=== PATIENT | female | born 1985 | race Two or more races ===

== ENCOUNTER → 2022-12-12 10:34 | Outpatient (BNVA) | payer OTHER, SELFPAY | PROVIDERS: Visit Provider Physician Assistant Surgical ==

== ENCOUNTER 2022-12-14 08:14 | Outpatient (AMB) | payer OTHER, SELFPAY ==
[2022-12-14 11:32] VITALS: BMI 42.3
--- NOTE | 2022-12-14 11:32 | MHC.OFFVISWM ---
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 BMI 42.4 Allergies No Known Allergies Allergy (Verified 12/14/22 12:04) Medication List - Last Reconciled 12/14/22 by Damon Tierney MD No Known Home Meds HPI TV BROOM MAN SWL BMI 42.4 HPI Details Start time: 11.30am, End time: 12.15pm ?I spent 40 minutes speaking with the patient on the phone plus an additional 5 minutes reviewing and updating records for a total of 45 minutes HPI Comments History of Present Illness Details Previous weight loss efforts: self diets, Cabbage soup, Phentermine Wakes up: 7am, Sleeps: 11pm Breakfast: 9am (cereal, bagel, toast) Lunch: 12pm (left over) Dinner: 7-8pm (rice, beans and chicken) Snacks: occasionally Gold fish or apple at 10am, 3-4pm (candy) Exercise: Has a home treadmill Fluids: Coffee: none, tea: none, soda: none, juice: 2 glasses per day, ETOH: none PFSH Medical History (Updated 12/14/22 @ 11:32 by Damon Tierney MD) Morbid obesity Surgical History (Updated 12/12/22 @ 11:02 by DESTINY Dasilva) delivery delivered Family History (Updated 12/12/22 @ 11:04 by DESTINY Dasilva) Mother No problems noted. Father Lung cancer Substance abuse Daughter No problems noted. Daughter No problems noted. Social History (Updated 12/12/22 @ 11:08 by DESTINY Dasilva) Household Members: Spouse and Children Housing: House Alcohol intake: never Patient Tobacco Use Status: Never used Tobacco Current occupational status: employed Current occupation: TEACHER Physical Exam Vital Signs: BMI result Body Mass Index 42.3 Assessment & Plan Assessment & Plan (1) Morbid obesity: Code(s): E66.01 - Morbid (severe) obesity due to excess calories Plan: 1.? Plan for lap sleeve gastrectomy. If diaphragmatic or ventral hernias are present at time of surgery, these will be repaired laparoscopically as well. Risks and complications were discussed in detail including possible conversion to an open procedure, anastomotic leak, bleeding requiring transfusion, small bowel obstruction, , DVT and pulmonary embolism, cardiac, or pulmonary complications, as care home complications such as anastomotic ulcer, insufficient weight loss and vitamin deficiencies. I emphasized the importance of close follow-up, adherence to instructions and good communication. 2. Nutritional counseling. Start with one Isopure INFUSIONS protein (buy at [employer] or [employer]) shakes (HALF scoop in 8oz water) at 7am-9am, 3 protein bars (CELEBRATE protein bars, buy at [facility] [employer] [facility]) one at 10am-12pm, one at 1pm-3pm and one at 4pm-6pm, dinner at 7pm (8 forks of protein and 8 forks of salad/vegetables) and one CELEBRATE REBUILD protein (buy at [facility] [employer] [facility]) shake (ONE scoop in 8oz low fat unsweetened almond milk each) at 9pm-11pm. The Celebrate shake can be replaced by a Herbalife shake preparing it the same way. So you do 2 protein shakes, 3 protein bars and one meal per day. Meal to include lean meat (beef, fish, pork, turkey, chicken), or welsh yogurt, or egg whites, or beans with a salad with olive oil and fruits (berries, pears, apples, kiwi). Avoid salt, breads, potatoes, rice, pasta, desserts. 3. Each shake would be drunk slowly, like coffee in a period of 2 hours. 4. Cut each bar in 4 pieces and eat each piece in 30min ?to make each bar last 2 hours. 5. I emphasized the importance of measuring accurately the food portion and measure it when serving the food in plate 6. The meal portions include 8 full-size forks of meat and 8 full-size forks of salad. You always eat the meat portion but you can replace up to 4 forks for salad/vegetables with rice, potatoes or pasta, or a fruit ?if you like. The less you do it the better weight loss will be. 7. One full-size fork is what it can be scooped on the fork without falling aside and not what can be bit with the fork. Use regular forks like those you find in a typical restaurant. 8.? Please send me weight measurements as soon as possible and then once a week. Always include your diet and exercise plan. 9. Start treadmill with an incline of 2.0 and speed of 3.0. Increase incline by 1 every 3 min to a max incline of 8.0, stay 3min at 8.0 and then return to 2.0 and repeat same steps until calorie goal is met. Goal is to burn 2000 calories per week on exercise, which means either 300 calories daily, or 400 calories 5 days per week, or 500 calories 4 days per week, or 650 calories 3 days per week. 10.?It is important of avoiding and for at least 18 months postoperatively and has been discussed at the infosession. 11. Goal is to lose at least 1.5-2lbs per week 12. Goal to lose 10% of your weight before surgery, which is about 23lbs. Ultimate weight goal: 208lbs before surgery 13. Please follow the diet plan exactly without any change. If you don't like something about the plan or you feel hungry you need to communicate with me so I can help you revise the plan. You should not change the plan yourself. Orders: Orders IRON PROFILE Today E66.01 - Morbid (severe) obesity due to excess calories Zinc Today E66.01 - Morbid (severe) obesity due to excess calories C Reactive Protein Today E66.01 - Morbid (severe) obesity due to excess calories US abdomen comp w elastography Today E66.01 - Morbid (severe) obesity due to excess calories FL upper GI w air Today E66.01 - Morbid (severe) obesity due to excess calories Insulin Today E66.01 - Morbid (severe) obesity due to excess calories Lipid Panel Today E66.01 - Morbid (severe) obesity due to excess calories Complete Blood Count Auto Diff Today E66.01 - Morbid (severe) obesity due to excess calories Vitamin B12 and Folate Today E66.01 - Morbid (severe) obesity due to excess calories Comprehensive Met. Panel Today E66.01 - Morbid (severe) obesity due to excess calories Vitamin B1 Today E66.01 - Morbid (severe) obesity due to excess calories Vitamin A Today E66.01 - Morbid (severe) obesity due to excess calories Ferritin Today E66.01 - Morbid (severe) obesity due to excess calories PTHI Today E66.01 - Morbid (severe) obesity due to excess calories TSH reflex Free T4 Today E66.01 - Morbid (severe) obesity due to excess calories H Pylori Breath Test Today E66.01 - Morbid (severe) obesity due to excess calories Vitamin D 25-OH Total Today E66.01 - Morbid (severe) obesity due to excess calories Hemoglobin A1c Today E66.01 - Morbid (severe) obesity due to excess calories XR chest 2V Today E66.01 - Morbid (severe) obesity due to excess calories ECG 12 lead EKG Today E66.01 - Morbid (severe) obesity due to excess calories Referrals Behavioral Health Referral E66.01 - Morbid (severe) obesity due to excess calories Nutrition/Dietitian Referral E66.01 - Morbid (severe) obesity due to excess calories Telehealth Telehealth Location of provider rendering services: practice address Location of patient: address on file Patient Identification confirmed using: Name, : Yes Telehealth method: voice only Patient verbally consented to treatment: Yes Patient verbally consented to billing insurance company: Yes Patient informed of any privacy concerns related to visit: Yes Minutes spent on Phone/Video with Pt.: 45 Coding Level of Care Code Tele New Pt Level 4 (28776) Diagnoses Morbid obesity E66.01 Time Spent (min) 45
== END 2022-12-14 12:43 | disposition home or self-care (01) ==
LOC: HO.HBS 08:15
PROVIDERS: Visit Provider Surgery
DX: E66.01 Morbid (severe) obesity due to excess calories (principal); Z68.41 Body mass index [BMI] 40.0-44.9, adult
CPT/HCPCS: 99443

== ENCOUNTER → 2022-12-14 08:14 | Outpatient (BNVA) | payer OTHER, SELFPAY | PROVIDERS: Visit Provider Surgery ==

== ENCOUNTER 2022-12-28 07:41 | Outpatient (REF) | payer OTHER, SELFPAY ==
--- NOTE | ~2022-12-28 | US_ITS ---
EXAMINATION: US COMPLETE ABDOMEN WITH LIVER ELASTOGRAPHY CLINICAL INFORMATION: COMPARISON: None available. TECHNIQUE: Real-time imaging of the abdominal viscera. Noninvasive ultrasound liver fibrosis assessment is performed using Lalo ElastPQ point quantification shear wave elastography (2D-SWE) with a C5-2 MHz transducer. Multiple elastography samples are obtained. FINDINGS: PANCREAS: Normal. The visualized pancreatic head and body are normal in appearance. The remainder of the pancreas is obscured from visualization by the overlying bowel gas. ABDOMINAL AORTA: The proximal, middle, and distal aortic segments are normal in caliber. INFERIOR VENA CAVA: Visualized portions are normal. LIVER: Normal. The liver demonstrates normal size, contour and echogenicity. Within the left hepatic lobe posteriorly, a 2.7 x 2.7 x 4.8 cm hypoechoic density is seen, without associated color Doppler flow. No intrahepatic biliary duct dilatation. The right lobe measures 19.0 cm in length. The left lobe measures 13.4 cm in length. Portal flow is towards the liver (hepatopetal). Shear wave liver elastography median stiffness is 1.37 m/s (reference: normal median stiffness is 1.3 m/s or less). IQR/median stiffness to assess sampling precision is 0.08 (reference: good quality data set is IQR/median stiffness of 0.15 or less). GALLBLADDER: Normal. The gallbladder is physiologically distended without evidence of stones, sludge, polyps, wall thickening or pericholecystic fluid. COMMON BILE DUCT: Normal in caliber measuring 0.5 cm in diameter. RIGHT KIDNEY: At the interpolar aspect, a 4 mm nonobstructing calculus is seen. At the lower pole, a 6 cm nonobstructing calculus is seen. No hydronephrosis. No renal calculi or focal parenchymal lesions. The kidney measures 12.5 cm in maximum dimension. LEFT KIDNEY: 32). (. No hydronephrosis. No renal calculi or focal parenchymal lesions. The kidney measures 16.4 cm in maximum dimension. SPLEEN: Normal. The spleen measures 11.9 cm in maximum dimension. FREE FLUID: None. US/US abdomen comp w elastography IMPRESSION: 1. There is generalized increase in hepatic echotexture, consistent with fatty infiltration or hepatocellular disease. Please correlate clinically. No intrahepatic biliary dilatation is seen. 2. Within the left hepatic lobe posteriorly, a 4.8 cm hypoechoic density is seen. This may represent a complex cyst, a solid lesion or focal fatty sparing. Recommend further evaluation with CT or MRI (hepatic mass protocol). 3. There is hepatomegaly. 4. Liver elastography: In the absence of other known clinical signs, measurements rule out compensated advanced chronic liver disease. If there are known clinical signs, further testing may be needed for confirmation. 5. There are nonobstructing right renal calculi. REFERENCE: Society of Radiologists in Ultrasound Liver Stiffness Thresholds (2020): LIVER STIFFNESS THRESHOLDS: *Liver Stiffness equal or less than 5 kPa: High probability of being normal. *Liver Stiffness less than 9 kPa: In the absence of other known clinical signs, rules out compensated advanced chronic liver disease. *Liver Stiffness 9-13 kPa: Suggestive of compensated advanced chronic liver disease but need further test for confirmation. *Liver Stiffness over 13 kPa: Rules in compensated advanced chronic liver disease. *Liver Stiffness over 17 kPa: Suggestive of clinically significant portal hypertension. QUALITY OF DATA SET: *IQR/Median value equal or less than 0.30 implies a quality data set. *IQR/Median value over 0.30 implies a poor quality data set. SIGNIFICANT CHANGE FROM PRIOR EXAM: Significant change if liver stiffness measurement is 10% or greater from prior exam. OTHER CONSIDERATIONS: The stage of liver fibrosis may be overestimated in the setting of acute hepatitis, liver inflammation, elevated liver function tests, hepatic vascular congestion, obstructive cholestasis, non-fasting state, and infiltrative diseases such as amyloidosis and lymphoma. In some patients with NAFLD, the liver stiffness thresholds for compensated advanced chronic liver disease may be lower. In causes other than viral hepatitis and NAFLD, liver stiffness thresholds are not well established. 2. Liver elastography: REFERENCE: Society of Radiologists in Ultrasound Liver Stiffness Thresholds (2020): LIVER STIFFNESS THRESHOLDS: *Liver Stiffness equal or less than 1.3 m/s: High probability of being normal. *Liver Stiffness less than 1.7 m/s: In the absence of other known clinical signs, rules out compensated advanced chronic liver disease. *Liver Stiffness 1.7-2.1 m/s: Suggestive of compensated advanced chronic liver disease but need further test for confirmation. *Liver Stiffness over 2.1 m/s: Rules in compensated advanced chronic liver disease. *Liver Stiffness over 2.4 m/s: Suggestive of clinically significant portal hypertension. QUALITY OF DATA SET: *IQR/Median value equal or less than 0.15 implies a quality data set. *IQR/Median value over 0.15 implies a poor quality data set. SIGNIFICANT CHANGE FROM PRIOR EXAM: Significant change if liver stiffness measurement is 10% or greater from prior exam. OTHER CONSIDERATIONS: The stage of liver fibrosis may be overestimated in the setting of acute hepatitis, liver inflammation, elevated liver function tests, hepatic vascular congestion, obstructive cholestasis, non-fasting state, and infiltrative diseases such as amyloidosis and lymphoma. In some patients with NAFLD, the liver stiffness thresholds for compensated advanced chronic liver disease may be lower. In causes other than viral hepatitis and NAFLD, liver stiffness thresholds are not well established.
--- NOTE | ~2022-12-28 | XR_ITS ---
EXAMINATION: XR CHEST CLINICAL INFORMATION: Morbid obesity. COMPARISON: None. TECHNIQUE: Frontal and lateral views of the chest were obtained. FINDINGS: The heart, great vessels, pulmonary vasculature and mediastinum are normal. The lungs show no focal infiltrate, effusion or pneumothorax. There is no acute osseous abnormality. XR/XR chest 2V IMPRESSION: No active cardiopulmonary disease.
--- NOTE | 2022-12-28 07:45 | ECG_ITS ---
Test Reason : morbid obesity Blood Pressure : / mmHG Vent. Rate : 077 BPM Atrial Rate : 077 BPM P-R Int : 180 ms QRS Dur : 078 ms QT Int : 374 ms P-R-T Axes : 020 013 023 degrees QTc Int : 423 ms Normal sinus rhythm Normal ECG No previous ECGs available Referred By: Damon Tierney Electronically Signed By:FÁTIMA MONSON MD
[2022-12-28 07:56] LABS: MANUAL DIFF FLAG NO
[2022-12-28 08:15] LABS: Basophils Percent Auto 0.3 % (0-2); Eosinophils Absolute Auto 0.3 X10*3/uL (0.0-0.4); Eosinophils Percent Auto 2.2 % (0-4); Hematocrit 40.6 % (37.0-47.0); Hemoglobin 13.1 g/dl (12.0-16.0); Imm Gran Abs Auto 0.07 X10*3/uL (0.00-0.03); Imm Gran Pct Auto 0.6 % (0.0-0.4); Lymphocytes Absolute Auto 3.2 X10*3/uL (1.2-4.9); Lymphocytes Percent Auto 28.3 % (20-40); Mean Corpuscular HGB Conc 32.3 g/dl (31.0-35.0); Mean Corpuscular Hemoglobin 28.8 pg (27.0-33.0); Mean Corpuscular Volume 89.2 fL (80.0-98.0); Mean Platelet Volume 10.1 fL (9.4-12.3); Monocytes Absolute Auto 0.9 X10*3/uL (0.1-1.2); Monocytes Percent Auto 8.2 % (2-11); Neutrophils Absolute Auto 6.7 x10*3/uL (2.0-8.3); Neutrophils Percent Auto 60.4 % (45-73); Platelet Count 310 X10*3/uL (160-400); Red Blood Count 4.55 X10*6/uL (4.20-5.50); Red Cell Distribution Width 13.6 % (11.0-16.0); White Blood Count 11.1 X10*3/uL (4.8-10.8)
[2022-12-28 08:23] LABS: Estimated Average Glucose 100 mg/dL; Hemoglobin A1c % 5.1 % (<6.0)
[2022-12-28 08:45] LABS: Alanine Aminotransferase 32 U/L (0-31); Alkaline Phosphatase 84 U/L (39-117); Anion Gap 12 (12-20); Aspartate Amino Transferase 29 U/L (5-31); Bilirubin Total 0.4 mg/dL (0.0-1.0); Blood Urea Nitrogen 10 mg/dL (9-16); C Reactive Protein 1.15 mg/dL (< or = 0.50); Calcium 10.7 mg/dL (8.4-10.2); Carbon Dioxide 23 mmol/L (22-29); Chloride 108 mmol/L (96-108); Cholesterol 183 mg/dL (<200); Estimated Glomerular Filt Rate > 60; Glucose Random 103 mg/dL (60-115); HDL Cholesterol 40 mg/dL (>40); Iron 73 mcg/dL (30-160); LDL Cholesterol Calculated 117 mg/dL (<100); Percent Iron Saturation 25 % (15-50); Potassium 4.1 mmol/L (3.3-5.1); Sodium 139 mmol/L (135-145); Total Iron Binding Capacity 294 mcg/dL (228-428); Total Protein 7.7 g/dL (6.5-8.0); Triglycerides 131 mg/dL (<150); Unsaturated Iron Binding 221 ug/dL
[2022-12-28 09:06] LABS: Ferritin 83 ng/mL (10-122); Insulin 20 uU/mL (2-29); TSH reflex Free T4 1.12 uIU/mL (0.32-4.0); Vitamin D 25-OH Total 18.8 ng/mL (>30)
[2022-12-28 09:12] LABS: Folate 8.4 ng/mL (> or = 4.0); Vitamin B12 293 pg/mL (200-900)
[2022-12-29 18:32] LABS: Calcium (PTHI) 10.1 mg/dL (8.6-10.2); PTHI 95 pg/mL (16-77)
[2022-12-31 10:10] LABS: H Pylori Breath Test Positive (Negative)
[2022-12-31 16:12] LABS: Zinc 83 mcg/dL (60-130)
[2023-01-03 12:54] LABS: Vitamin A 45 mcg/dL (38-98)
[2023-01-03 14:18] LABS: Vitamin B1 10 nmol/L (8-30)
== END 2022-12-28 07:42 | disposition home or self-care (01) ==
LOC: HO.US 07:41
PROVIDERS: PCP Physician Assistant; Visit Provider Surgery
DX: Z11.2 Encounter for screening for other bacterial diseases (principal); E66.01 Morbid (severe) obesity due to excess calories
CPT/HCPCS: 36415; 71046; 76705; 76981; 80053; 80061; 82306; 82607; 82728; 82746; 83013; 83036; 83525; 83540; 83970; 84425; 84443; 84590; 84630; 85025; 86140; 93005; 99211

== ENCOUNTER 2023-01-12 08:10 | Outpatient (AMB) | payer OTHER, SELFPAY ==
--- NOTE | 2023-01-12 12:42 | MHC.OFFVISWM ---
Intake VS Expanded 01/12/23 13:12 Height 5 ft 2 in Weight 229 lb 4 oz BMI 41.9 Body Fat % 55.2 Body Fat Mass 126.6 Fat Free Mass 102.8 Visceral Fat Rating 23 Body Water % 30.7 Body Water Mass 70.4 Basal Metabolic Rate/Score 1,381 Intake Visit Reasons: TV Follow Up SWL - 1ST Allergies No Known Allergies Allergy (Verified 12/14/22 12:04) HPI TV Follow Up SWL - 1ST HPI Details Start time: 12.41pm, End time: 1.23pm ?I spent 37 minutes speaking with the patient on the phone plus an additional 5 minutes reviewing and updating records for a total of 42 minutes HPI Comments History of Present Illness Details Overall weight loss: 2.4lbs, or 1.04% TBWL Is doing one Isopure Infusion (1/2 scoop in water) at 7.30am-9.30am, a Celebrate protein bar 9-11pm. lunch (8 forks of chicken and 8 forks of salad) at 12pm, one Celebrate protein bar at 2pm-4pm, dinner (8 forks of chicken and 4 forks or rice and 4 forks of salad), one Celebrate Rebuild shakes with one scoop in almond milk) Exercise: is doing home treadmill [facility] Medical History (Updated 01/08/23 @ 18:44 by Damon Tierney MD) Morbid obesity Surgical History (Updated 12/12/22 @ 11:02 by DESTINY Dasilva) delivery delivered Family History (Updated 12/12/22 @ 11:04 by DESTINY Dasilva) Mother No problems noted. Father Lung cancer Substance abuse Daughter No problems noted. Daughter No problems noted. Social History (Updated 12/12/22 @ 11:08 by DESTINY Dasilva) Household Members: Spouse and Children Housing: House Alcohol intake: never Patient Tobacco Use Status: Never used Tobacco Current occupational status: employed Current occupation: TEACHER Assessment & Plan Assessment & Plan (1) Morbid obesity: Code(s): E66.01 - Morbid (severe) obesity due to excess calories Plan: 1. Please change the nutritional plan to one Celebrate Rebuild shake (HALF scoop in 8oz almond milk) at 8am-10am, a Celebrate protein bar at 11am-1pm, one Celebrate Rebuild shake (HALF scoop in 8oz almond milk) at 2pm-4pm, HALF Celebrate bar at 5pm-6pm, dinner at 7pm (8 forks of protein and 8 forks of salad or vegetables) and one Celebrate protein bar ar 9pm-11pm 2. Take the Phentermine daily at 11am 3. Change treadmill to a speed of 4mph at incline 4 until you burn 300 calories or for an hour if you don't get to 300 calories in an hour 4. We discussed the potential side-effects of the Phentermine such as irritability, dry mouth, difficulty sleeping, dizziness, numbness in feet and high blood pressure. I asked her to get a blood pressure monitor and measure the blood pressure daily in the morning and evening. She needs to send the blood pressure readings daily and to call the office for blood pressure over 140/80 and she understands that. 5. Please send weight measurements weekly on Mondays Medications: New phentermine must administer 30 minutes before or 1-2 hours after breakfast 37.5 mg PO DAILY 14 tabs 0RF E66.01 - Morbid (severe) obesity due to excess calories Telehealth Telehealth Location of provider rendering services: practice address Location of patient: address on file Patient Identification confirmed using: Name, : Yes Telehealth method: voice only Patient verbally consented to treatment: Yes Patient verbally consented to billing insurance company: Yes Patient informed of any privacy concerns related to visit: Yes Minutes spent on Phone/Video with Pt.: 42 Coding Level of Care Code Tele Est Pt Level 5 (16712) Diagnoses Morbid obesity E66.01 Time Spent (min) 42
[2023-01-12 13:12] VITALS: BMI 41.9
== END 2023-01-12 13:24 | disposition home or self-care (01) ==
LOC: HO.HBS 08:10
PROVIDERS: PCP Physician Assistant; Visit Provider Surgery
DX: E66.01 Morbid (severe) obesity due to excess calories (principal); Z68.41 Body mass index [BMI] 40.0-44.9, adult
CPT/HCPCS: 99443

== ENCOUNTER → 2023-01-12 08:10 | Outpatient (BNVA) | payer OTHER, SELFPAY | PROVIDERS: PCP Physician Assistant; Visit Provider Surgery ==

== ENCOUNTER → 2023-01-18 15:49 | Outpatient (BNVA) | payer OTHER, SELFPAY | PROVIDERS: PCP Physician Assistant; Visit Provider Dietitian, Registered | DX: E66.01 Morbid (severe) obesity due to excess calories (principal); Z71.3 Dietary counseling and surveillance | CPT/HCPCS: 97802 ==

== ENCOUNTER 2023-01-25 16:17 | Outpatient (AMB) | payer OTHER, SELFPAY ==
--- NOTE | 2023-01-25 15:59 | A.OFFWM_ITS ---
Intake Intake Visit Reasons: VIDEO BH Intake Allergies No Known Allergies Allergy (Verified 12/14/22 12:04) ON LICENSE OF [facility] Medical History (Updated 01/25/23 @ 16:35 by Garima Greenwood) Morbid obesity Surgical History (Updated 12/12/22 @ 11:02 by DESTINY Dasilva) delivery delivered Family History (Updated 12/12/22 @ 11:04 by DESTINY Dasilva) Mother No problems noted. Father Lung cancer Substance abuse Daughter No problems noted. Daughter No problems noted. Social History (Updated 12/12/22 @ 11:08 by DESTINY Dasilva) Household Members: Spouse and Children Housing: House Alcohol intake: never Patient Tobacco Use Status: Never used Tobacco Current occupational status: employed Current occupation: TEACHER Behavioral Health Assessment Weight Management Therapy Therapy Notes Details Pt is looking to have weight loss surgery to help improve his health and quality of life. She denied any mental health history and denied a history of any drug or alcohol abuse. She reported some anxiety and was given medication by her doctor but she did not take it. Presenting Concerns Referral Source provider Reason for referral weight loss surgery evaluation Precipitating Event obesity Living Situation Current Living Situation Own At risk of losing current housing? No Satisfied with current living situation? Yes Comments Lives with her children ages 11, and 13 as well as her fiance. Food/Weight/Diet Expectations of change weight loss and maintenance History/Relationship with food Pt stated that she was ordering out often at work and evenings. Also fast food and whatever she could on the go for her and her children. Also larger portions as well as snacking. Eating late at night until her fianc? gets home. She denies any binge eating. History/Relationship with weight Pt stated that she has been struggling with her weight her whole life. She gained most of the weight after she had kids. She realized that she thought she was huge at 150lbs but was not. History/Relationship with dieting Phentermine in the past, various other diets, ear staple and medication went down to 167lbs. Social History Family history and relationship Pt stated that she was raised by her mother, Some trauma of not having her father around. Her mom sister and other family members all have struggled with her weight. Parental/Familial snow blower obligations children Developmental history and status no issues Social support mom, sister Cultural/Ethnic information Legal Involvement and History Current or historical involvement with the legal system? none Education Highest grade completed college for teaching Preferred learning style Auditory, Verbal, Written, Learn by doing and Visual Currently enrolled in educational program? No Interested in further educational program? Yes Educational Interests/Skills Patient works as a teacher Employment Employment Status Charge Loader Wants help to find employment? No Financial Situation Describe current financial situation Comfortable Financial assistance? None Service Service? No Mental Health and Addiction Treatment Current/Past substance abuse? No Current/Past addictive behavior concerns? No Medical and Physical Health Summary Physical exam in the last year? Yes Pain Screening Current pain? Yes Pain in the last few months? No Medications Is the patient compliant with medications? Yes Does the patient have Patten Guardian in place? Not applicable Does the patient use complimentary health approaches? No Questionnaires PHQ-9 Over the last 2 weeks, how often have you been bothered by any of the following problems? 1. Little interest or pleasure in doing things: not at all 2. Feeling down, depressed, or hopeless: not at all 3. Trouble falling or staying asleep, or sleeping too much: not at all 4. Feeling tired or having little energy: not at all 5. Poor appetite or overeating: not at all 6. Feeling bad about yourself - or that you are a failure or have let yourself or your family down: not at all 7. Trouble concentrating on things, such as reading the newspaper or watching television: not at all 8. Moving or speaking so slowly that other people could have noticed. Or the opposite - being so fidgety or restless that you have been moving around a lot more than usual: not at all 9. Thoughts that you would be better off or of hurting yourself in some way: not at all Total score: 0 Depression Screening Interpretation: Negative Depression Screening Done: Yes Source: Developed by Drs. Jackson Ortiz, Roya Mcgarry, Raheem Collier and colleagues, with an educational sissy from [employer]. Binge Eating Scale Group 1 A. I don't feel self-conscious about my wt. or body size when I'm with others. B. I feel concerned about how I look to others, but it normally does not make me fell disappointed with myself C. I do get self-conscious about my appearance and wt. which makes me feel disappointed in myself. D. I feel very self-conscious about my wt. and frequently I feel intense shame and disgust for myself. I try to avoid social contacts because of my self- consciousness. Response Group 1: C Group 2 A. I don't have any difficulty eating slowly in the proper manner. B. Although I seem to gobble down foods, I don't end up feeling stuffed because of eating to much. C. At times, I tend to eat quickly and then, I feel uncomfortably full afterwards. D. I have the habit of bolting down my food, without really chewing it. When this happens I usually feel uncomfortably stuffed because I've eaten to much. Response Group 2: C Group 3 A. I feel capable to control my eating urges when I want to. B. I feel like I have failed to control my eating more than the average person. C. I feel utterly helpless when it comes to feeling in control of my eating urges. D. Because I feel so helpless about controlling my eating I have become very desperate about trying to get control. Response Group 3: B Group 4 A. I don't have the habit of eating when I'm bored. B. I sometimes eat when I'm bored, but often I'm able to get busy and get my mind off food. C. I have a regular habit of eating when I'm bored, but occasionally, I can use some other activity to get my mind off eating. D. I have a strong habit of eating when I'm bored. Nothing seems to help me breath the habit. Response Group 4: C Group 5 A. I'm usually physically hungry when I eat something. B. Occasionally, I eat something on impulse even though I really am not hungry. C. I have the regular habit of eating foods, that I might not really enjoy, to satisfy a hungry feeling even though physically, I don't need the food. D. Although I'm not physically hungry, I get a hungry feeling in my mouth that only seems to be satisfied when I eat a food, like sandwich, that fills my mouth. Sometimes, when I eat the food to satisfy my mouth hunger, I then spit the food out so I won't gain weight. Response Group 5: B Group 6 A. I don't feel any guilt or self-hate after I overeat. B. After I overeat, occasionally I feel guilt or self-hate. C. Almost all the time I experience strong guilt or self-hate after I overeat. Response Group 6: B Group 7 A. I don't lose total control of my eating when dieting even after periods when I overeat. B. Sometimes when I eat a forbidden food on a diet, I feel like I blew it and eat even more. C. Frequently, I have the habit of saying to myself, I've blown it now, why not go all the way, when I overeat on a diet. When that happens I eat more. D. I have a regular habit of starting a strict diets for myself but I break the diets by going on an eating binge. My life seems to be either a feast or famine. Response Group 7: B Group 8 A. I rarely eat so much food that I feel uncomfortably stuffed afterwards. B. Usually about once a month, I each such a quantity of food, I end up feeling very stuffed. C. I have regular periods during the month when I eat large amounts of food, either at mealtime or at snacks. D. I eat so much food that I regularly feel quite uncomfortable after eating and sometimes a bit nauseous. Response Group 8: A Group 9 A. My level of calorie intake does not go up very high or go down very low on a regular basis. B. Sometimes after I overeat, I will try to reduce my caloric intake to almost nothing to compensate for the excess calories I've eaten. C. I have a regular habit of overeating during the night. It seems that my routine is not to be hungry in the morning but overeat in the evening. D. In my adult years, I have had week-long periods where I practically starve myself. This follows periods when I overeat. It seems I live a life of either feast or famine. Response Group 9: B Group 10 A. I usually am able to stop eating when I want to. I know when enough is enough. B. Every so often, I experience a compulsion to eat which I can't seem to control. C. Frequently, I experience strong urges to eat which I seem unable to control, but at other times I can control my eating urges. D. I feel incapable of controlling urges to eat. I have a fear of not being able to stop eating voluntarily. Response Group 10: A Group 11 A. I don't have any problem stopping eating when I feel full. B. I usually can stop eating when I feel full but occasionally overeat leaving me feeling uncomfortably stuffed. C. I have a problem stopping eating once I start and usually I feel uncomfortably stuffed after I eat a meal. D. Because I have a problem not being able to stop eating when I want, I sometimes have to induce vomiting to relieve my stuffed feeling. Response Group 11: A Group 12 A. I seem to eat just as much when I'm with others, Family social gatherings as when I'm by myself. B. Sometimes, when I'm with other persons, I don't eat as much as I want to eat because I'm self-conscious about my eating. C. Frequently, I eat only a small amount of food when others are present, because I'm very embarrassed about my eating. D. I feel so ashamed about overeating that I pick times to overeat when I know no one will see me. I feel like a closet eater. Response Group 12: B Group 13 A. I eat three meals a day with only an occasional between meal snack. B. I eat 3 meals a day, but I also normally snack between meals. C. When I am snacking heavily, I get in the habit of skipping regular meals. D. There are regular periods when I seem to be continually eating, with no planned meals. Response Group 13: B Group 14 A. I don't think much about trying to control unwanted eating urges. B. At least some of the time, I feel my thoughts are pre-occupied with trying to control my eating urges. C. I feel that frequently I spend much time thinking about how much I ate or about trying not to eat anymore. D. It seems to me that most of my waking hours are pre-occupied by thoughts about eating or not eating. I feel like I'm constantly struggling not to eat. Response Group 14: B Group 15 A. I don't think about food a great deal. B. I have strong craving for food but they last only for brief periods of time. C. I have days when I can't seem to think about anything else but food. D. Most of my days seem to be pre-occupied with thoughts about food. I feel like I live to eat. Response Group 15: C Group 16 A. I usually know whether or not I'm physically hungry. I take the right portion of food to satisfy me. B. Occasionally, I feel uncertain about knowing whether or not I'm physically hungry. A these times it's hard to know how much food I should take to satisfy me. C. Even though I might know how many calories I should eat, I don't have any idea what is a normal amount of food for me. Response Group 16: C Binge Eating Score: 18 Score less than 17 Minimal Risk Score between 18-26 Moderate Risk Score between 27-46 High Risk Assessment & Plan Assessment & Plan (1) Adjustment disorder, unspecified: Code(s): F43.20 - Adjustment disorder, unspecified (2) Morbid obesity: Code(s): E66.01 - Morbid (severe) obesity due to excess calories Plan Patient has no serious mental health problems. 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 Telehealth Telehealth Location of provider rendering services: other Location of patient: address on file Patient Identification confirmed using: Name, : Yes Telehealth method: voice only Patient verbally consented to treatment: Yes Patient verbally consented to billing insurance company: Yes Patient informed of any privacy concerns related to visit: Yes Minutes spent on Phone/Video with Pt.: 45 Coding Level of Care Code Tele Psy Diag Eval (40758) Diagnoses Adjustment disorder, unspecified F43.20 Morbid obesity E66.01 Time Spent (min) 45
== END 2023-01-25 16:37 | disposition home or self-care (01) ==
LOC: HO.HBST 16:17
PROVIDERS: PCP Physician Assistant; Visit Provider Counselor Mental Health
DX: F43.20 Adjustment disorder, unspecified (principal); E66.01 Morbid (severe) obesity due to excess calories
CPT/HCPCS: 90791

== ENCOUNTER → 2023-01-25 16:17 | Outpatient (BNVA) | payer OTHER, SELFPAY | PROVIDERS: PCP Physician Assistant; Visit Provider Counselor Mental Health ==

== ENCOUNTER 2023-01-29 08:52 | Outpatient (AMB) | payer OTHER, SELFPAY ==
[2023-01-28 20:39] VITALS: BP 146/85; BMI 41.7
--- NOTE | 2023-01-28 20:39 | MHC.OFFVISWM ---
Intake VS Expanded 01/28/23 20:39 BP 146/85 H Height 5 ft 2 in Weight 228 lb BMI 41.7 Body Fat % 55 Body Fat Mass 125.8 Fat Free Mass 103 Visceral Fat Rating 24 Body Water % 30.9 Body Water Mass 70.6 Basal Metabolic Rate/Score 2,606 Intake Visit Reasons: TV Follow Up SWL Allergies No Known Allergies Allergy (Verified 12/14/22 12:04) HPI TV Follow Up SWL HPI Details Start time: 11.54am, End time: 12.09pm. An additional 15 minutes were used at a different part of the day to complete this note and review patient's records. ?I spent 15 minutes speaking with the patient on the phone plus an additional 15 minutes reviewing and updating records for a total of 30 minutes HPI Comments History of Present Illness Details Overall weight loss: 3.8lbs, or 1.64% TBWL On Phentermine 1st prescription Has some dry mouth Denies any dizziness, foot numbness, irritability, insomnia Is doing one Celebrate Rebuild shake (HALF scoop in 8oz almond milk) at 8am-10am, a Celebrate protein bar at 11am-1pm, one Celebrate Rebuild shake (HALF scoop in 8oz almond milk) at 2pm-4pm, HALF Celebrate bar at 5pm-6pm, dinner at 7pm (8 forks of protein and 8 forks of salad or vegetables) and one Celebrate protein bar ar 9pm-11pm Exercise: is doing treadmill to a speed of 4mph at incline 4 until you burn 300 calories daily [facility] Medical History (Updated 01/25/23 @ 16:35 by Garima Greenwood) Morbid obesity Surgical History (Updated 12/12/22 @ 11:02 by DESTINY Dasilva) delivery delivered Family History (Updated 12/12/22 @ 11:04 by DESTINY Dasilva) Mother No problems noted. Father Lung cancer Substance abuse Daughter No problems noted. Daughter No problems noted. Social History (Updated 12/12/22 @ 11:08 by DESTINY Dasilva) Household Members: Spouse and Children Housing: House Alcohol intake: never Patient Tobacco Use Status: Never used Tobacco Current occupational status: employed Current occupation: TEACHER Physical Exam Vital Signs: Last Vital Signs BP 146/85 H 01/28/23 20:39 BMI result Body Mass Index 41.8 Assessment & Plan Assessment & Plan (1) Morbid obesity: Code(s): E66.01 - Morbid (severe) obesity due to excess calories Plan: 1. Continue same nutritional plan of one Celebrate Rebuild shake (HALF scoop in 8oz almond milk) at 8am-10am, a Celebrate protein bar at 11am-1pm, one Celebrate Rebuild shake (HALF scoop in 8oz almond milk) at 2pm-4pm, HALF Celebrate bar at 5pm-6pm, dinner at 7pm (8 forks of protein and 8 forks of salad or vegetables) and one Celebrate protein bar ar 9pm-11pm 2. Take the Phentermine daily at 11am 3. If you don't feel hungry, please skip the dinner as often as possible and replace it with another extra protein bar (3rd bar for the day) 4. Continue treadmill to a speed of 4mph at incline 4 until you burn 300 calories daily. Goal is to burn 2000 calories per week. 5. Continue to send me weight measurements weekly on Mondays Medications: Refilled phentermine must administer 30 minutes before or 1-2 hours after breakfast 37.5 mg PO DAILY 14 tabs 0RF E66.01 - Morbid (severe) obesity due to excess calories Telehealth Telehealth Location of provider rendering services: practice address Location of patient: address on file Patient Identification confirmed using: Name, : Yes Telehealth method: voice only Patient verbally consented to treatment: Yes Patient verbally consented to billing insurance company: Yes Patient informed of any privacy concerns related to visit: Yes Minutes spent on Phone/Video with Pt.: 30 Coding Level of Care Code Tele Est Pt Level 4 (57612) Diagnoses Morbid obesity E66.01 Time Spent (min) 30
== END 2023-01-29 12:09 | disposition home or self-care (01) ==
PROVIDERS: PCP Physician Assistant; Visit Provider Surgery
DX: E66.01 Morbid (severe) obesity due to excess calories (principal); Z68.41 Body mass index [BMI] 40.0-44.9, adult
CPT/HCPCS: 99443

== ENCOUNTER → 2023-01-29 08:52 | Outpatient (BNVA) | payer OTHER, SELFPAY | PROVIDERS: PCP Physician Assistant; Visit Provider Surgery ==

== ENCOUNTER 2023-02-07 09:04 | Outpatient (REF) | payer OTHER, SELFPAY ==
[2023-02-10 15:08] LABS: H Pylori Breath Test Negative (Negative)
== END 2023-02-07 09:05 | disposition home or self-care (01) ==
LOC: HO.LNP 09:04
PROVIDERS: PCP Physician Assistant; Visit Provider Surgery
DX: Z11.2 Encounter for screening for other bacterial diseases (principal)
CPT/HCPCS: 83013; 99211

== ENCOUNTER 2023-02-12 08:16 | Outpatient (AMB) | payer OTHER, SELFPAY ==
--- NOTE | 2023-02-12 11:52 | A.OFFVIS_ITS ---
Intake VS Expanded 02/12/23 12:14 Height 5 ft 2 in Weight 225 lb BMI 41.1 Body Fat % 53.9 Body Fat Mass 121.2 Fat Free Mass 103.8 Visceral Fat Rating 22 Body Water % 31.6 Body Water Mass 71.1 Basal Metabolic Rate/Score 1,399 Intake Visit Reasons: TV Follow Up SWL Allergies No Known Allergies Allergy (Verified 12/14/22 12:04) HPI TV Follow Up SWL HPI Details Start time: 11.47am, End time: 12.28pm ?I spent 40 minutes speaking with the patient on the phone plus an additional 5 minutes reviewing and updating records for a total of 45 minutes HPI Comments History of Present Illness Details Overall weight loss: 6.8lbs, or 2.93% TBWL On Phentermine 2nd prescription, 11 pills left Has some dry mouth and insomnia but she states it is tolerable Denies any dizziness, foot numbness, irritability. Is doing 2 Celebrate Rebuild protein shakes (1 scoop in soy milk), 2.5 Celebrate protein bars and one meal (8 forks of protein and 8 forks of vegetables), or an additional bar Exercise: doing treadmill (speed at 4mph and an incline 4.0) [facility] Medical History (Updated 01/25/23 @ 16:35 by Garima Greenwood) Morbid obesity Surgical History (Updated 12/12/22 @ 11:02 by DESTINY Dasilva) delivery delivered Family History (Updated 12/12/22 @ 11:04 by DESTINY Dasilva) Mother No problems noted. Father Lung cancer Substance abuse Daughter No problems noted. Daughter No problems noted. Social History (Updated 12/12/22 @ 11:08 by DESTINY Dasilva) Household Members: Spouse and Children Housing: House Alcohol intake: never Patient Tobacco Use Status: Never used Tobacco Current occupational status: employed Current occupation: TEACHER Assessment & Plan Assessment & Plan (1) Morbid obesity: Code(s): E66.01 - Morbid (severe) obesity due to excess calories Plan: 1. Continue same nutritional plan of 2 Celebrate Rebuild protein shakes (1 scoop in soy milk), 2.5 Celebrate protein bars and one meal (8 forks of protein and 8 forks of vegetables) 2. Please avoid completely the soy or low fat milk. Only use low fat unsweetened almond milk 3. Please continue to try to replace the meal as many times as possible per week with another protein bar 4. Exercise: continue treadmill (speed at 4mph and an incline 4.0) but do it ideally daily for 300 calories per work-out. Goal is to burn 2000 calories per week on exercise, which means either 300 calories daily, or 400 calories 5 days per week, or 500 calories 4 days per week, or 650 calories 3 days per week. 5. Continue to send me weight measurements weekly on Mondays 6. Send me your blood pressure tomorrow morning. We discussed the potential side-effects of the Phentermine such as irritability, dry mouth, difficulty sleeping, dizziness, numbness in feet and high blood pressure. I asked her to get a blood pressure monitor and measure the blood pressure daily in the morning and evening. She needs to send the blood pressure readings daily and to call the office for blood pressure over 140/80 and she understands that. Telehealth Telehealth Location of provider rendering services: practice address Location of patient: address on file Patient Identification confirmed using: Name, : Yes Telehealth method: voice only Patient verbally consented to treatment: Yes Patient verbally consented to billing insurance company: Yes Patient informed of any privacy concerns related to visit: Yes Minutes spent on Phone/Video with Pt.: 45 Coding Level of Care Code Tele Est Pt Level 5 (13198) Diagnoses Morbid obesity E66.01 Time Spent (min) 45
[2023-02-12 12:14] VITALS: BMI 41.1
== END 2023-02-12 12:29 | disposition home or self-care (01) ==
LOC: HO.HBS 08:16
PROVIDERS: PCP Physician Assistant; Visit Provider Surgery
DX: E66.01 Morbid (severe) obesity due to excess calories (principal); Z68.41 Body mass index [BMI] 40.0-44.9, adult
CPT/HCPCS: 99443

== ENCOUNTER → 2023-02-12 08:16 | Outpatient (BNVA) | payer OTHER, SELFPAY | PROVIDERS: PCP Physician Assistant; Visit Provider Surgery ==

== ENCOUNTER 2023-02-28 16:26 | Outpatient (AMB) | payer OTHER, SELFPAY ==
--- NOTE | 2023-02-28 16:05 | A.OFFVIS_ITS ---
Intake Intake Visit Reasons: VIDEO F/U SWL Allergies No Known Allergies Allergy (Verified 12/14/22 12:04) HPI Nutrition Presentation Details Pt is now on Phentermine Reason for consult elevated BMI Diet Assmnt Details Pt states she is doing great with her plan now. Likes the new shakes . She states she has no questions or concerns Is happy with her meal plan now. [facility] online classes : completed Previous weight loss methods attempted took phentermine 7 years ago Dietary counseling reduction Diagnosis Nutrition problem #1 overweight/obesity As related to (etiology) #1 excess energy intake and physical inactivity As evidenced by (sign/symptom) #1 high BMI Monitoring/Goals Nutrition problem monitoring total energy intake, level of knowledge/skill, total PRO intake, total CHO intake and weight Outcome progress progressing Learning/Education Readiness to learn good Stages of change action Educational materials provided Yes Most Recent Diabetes Results: No Data to Display [facility] Medical History (Updated 01/25/23 @ 16:35 by Garima Greenwood) Morbid obesity Surgical History (Updated 12/12/22 @ 11:02 by DESTINY Dasilva) delivery delivered Family History (Updated 12/12/22 @ 11:04 by DESTINY Dasilva) Mother No problems noted. Father Lung cancer Substance abuse Daughter No problems noted. Daughter No problems noted. Social History (Updated 12/12/22 @ 11:08 by DESTINY Dasilva) Household Members: Spouse and Children Housing: House Alcohol intake: never Patient Tobacco Use Status: Never used Tobacco Current occupational status: employed Current occupation: TEACHER Assessment & Plan Assessment & Plan (1) Morbid obesity: Code(s): E66.01 - Morbid (severe) obesity due to excess calories Plan Patient is cleared from a nutrition standpoint for bariatric surgery. Educational requirements have been completed. Reviewed vitamin supplementation and commitment to protein shake for several months post surgery. Encouraged communication with office as needed Telehealth Telehealth Location of provider rendering services: practice address Location of patient: address on file Patient Identification confirmed using: Name, : Yes Telehealth method: voice only Patient verbally consented to treatment: Yes Patient verbally consented to billing insurance company: Yes Patient informed of any privacy concerns related to visit: Yes Minutes spent on Phone/Video with Pt.: 10 Coding Level of Care Code Nutr Indiv Subseq (06911) Diagnoses Morbid obesity E66.01 Time Spent (min) 10
== END 2023-03-01 10:49 | disposition home or self-care (01) ==
LOC: HO.HBS 16:26
PROVIDERS: PCP Physician Assistant; Visit Provider Dietitian, Registered
DX: E66.01 Morbid (severe) obesity due to excess calories (principal)

== ENCOUNTER → 2023-02-28 16:26 | Outpatient (BNVA) | payer OTHER, SELFPAY | PROVIDERS: PCP Physician Assistant; Visit Provider Dietitian, Registered | DX: E66.01 Morbid (severe) obesity due to excess calories (principal); Z71.3 Dietary counseling and surveillance | CPT/HCPCS: 97803 ==

== ENCOUNTER 2023-03-02 08:29 | Outpatient (AMB) | payer OTHER, SELFPAY ==
--- NOTE | 2023-03-02 13:37 | MHC.OFFVISWM ---
Intake VS Expanded 03/02/23 13:49 Height 5 ft 2 in Weight 221 lb 6 oz BMI 40.5 Body Fat % 52.9 Body Fat Mass 117.2 Fat Free Mass 104.4 Visceral Fat Rating 22 Body Water % 32.3 Body Water Mass 71.5 Basal Metabolic Rate/Score 1,385 Intake Visit Reasons: TV Follow Up SWL Allergies No Known Allergies Allergy (Verified 12/14/22 12:04) HPI TV Follow Up SWL HPI Details Start time: 1.35pm, End time: 1.55pm ?I spent 15 minutes speaking with the patient on the phone plus an additional 5 minutes reviewing and updating records for a total of 20 minutes HPI Comments History of Present Illness Details Overall weight loss: 10.2lbs, or 4.4% TBWL On Phentermine Is doing 2 Celebrate Rebuild protein shakes (1 scoop in 8oz almond milk), 2.5 Celebrate protein bars and one meal (up to 8 forks of protein and up to 8 forks of salad or vegetables) Exercise: doing treadmill daily 200-300 calories, fior x2/wk [facility] Medical History (Updated 01/25/23 @ 16:35 by Garima Greenwood) Morbid obesity Surgical History (Updated 12/12/22 @ 11:02 by DESTINY Dasilva) delivery delivered Family History (Updated 12/12/22 @ 11:04 by DESTINY Dasilva) Mother No problems noted. Father Lung cancer Substance abuse Daughter No problems noted. Daughter No problems noted. Social History (Updated 12/12/22 @ 11:08 by DESTINY Daislva) Household Members: Spouse and Children Housing: House Alcohol intake: never Patient Tobacco Use Status: Never used Tobacco Current occupational status: employed Current occupation: TEACHER Assessment & Plan Assessment & Plan (1) Morbid obesity: Code(s): E66.01 - Morbid (severe) obesity due to excess calories Plan: 1. Continue same nutritional plan of 2 Celebrate Rebuild protein shakes (1 scoop in 8oz almond milk), 2.5 Celebrate protein bars and one meal (up to 8 forks of protein and up to 8 forks of salad or vegetables) 2. Exercise: continue treadmill daily 200-300 calories, fior x2/wk 3. We discussed the potential side-effects of the Phentermine such as irritability, dry mouth, difficulty sleeping, dizziness, numbness in feet and high blood pressure. I asked her to get a blood pressure monitor the blood pressure daily in the morning and evening. She needs to send the blood pressure readings daily and to call the office for blood pressure over 140/80 and she understands that. 4. Continue to send me weight measurements on Wednesdays Telehealth Telehealth Location of provider rendering services: practice address Location of patient: address on file Patient Identification confirmed using: Name, : Yes Telehealth method: voice only Patient verbally consented to treatment: Yes Patient verbally consented to billing insurance company: Yes Patient informed of any privacy concerns related to visit: Yes Minutes spent on Phone/Video with Pt.: 20 Coding Level of Care Code Tele Est Pt Level 3 (39901) Diagnoses Morbid obesity E66.01 Time Spent (min) 20
[2023-03-02 13:49] VITALS: BMI 40.5
== END 2023-03-02 13:55 | disposition home or self-care (01) ==
LOC: HO.HBS 08:29
PROVIDERS: PCP Physician Assistant; Visit Provider Surgery
DX: E66.01 Morbid (severe) obesity due to excess calories (principal); Z68.41 Body mass index [BMI] 40.0-44.9, adult
CPT/HCPCS: 99442

== ENCOUNTER → 2023-03-02 08:29 | Outpatient (BNVA) | payer OTHER, SELFPAY | PROVIDERS: PCP Physician Assistant; Visit Provider Surgery ==

== ENCOUNTER 2023-03-06 08:16 | Outpatient (REF) | payer OTHER, SELFPAY ==
--- NOTE | ~2023-03-06 | FL_ITS ---
EXAMINATION: XR FLUOROSCOPY UPPER GI WITH AIR CLINICAL INFORMATION: Morbid obesity, preop for bariatric surgery. Patient complains of mild reflux. COMPARISON: No prior. TECHNIQUE: Fluoroscopic air contrast upper GI examination was performed utilizing standard techniques with thin and thick barium and effervescent granules. Numerous spot images were obtained. Several fluoroscopic image hold cine sequences were also obtained. FINDINGS: No tracheal penetration, glottic or subglottic aspiration identified. No nasopharyngeal reflux present. Hypopharyngeal structures appear normal without evidence of mass or diverticulum. There was no significant cricopharyngeal achalasia. Dual and single contrast images of the esophagus demonstrate normal caliber, contour, and mucosal pattern. No evidence of stricture, mass, or ulcerations identified. Esophageal peristalsis was normal. Small type I hiatus hernia identified. Mild gastroesophageal reflux identified to the level of the parviz. Dual contrast and single contrast images of the stomach demonstrated normal contour and mucosal pattern without evidence of mass, ulceration, or other abnormality. Contrast freely passed into the gastric antrum and duodenal bulb without delay. Single and air-contrast images of the duodenal bulb demonstrate no abnormality. The duodenal sweep has a normal appearance, course, and mucosal fold appearance. The imaged proximal jejunum has a normal fold pattern and caliber. FLUOROSCOPY TIME: 2 minutes, 33 seconds Number of Spot Images: 8 Number of cines obtained: 13 DOSE AREA PRODUCT: 3019 uGy-m2 (microgray-meter squared) FL/FL upper GI w air IMPRESSION: Small type I sliding hiatus hernia. Mild gastroesophageal reflux the level of the parviz. Remainder the examination including the stomach, duodenal bulb, duodenal sweep, and proximal jejunum appear normal.
== END 2023-03-06 08:17 | disposition home or self-care (01) ==
LOC: HO.XRAY 08:16
PROVIDERS: PCP Physician Assistant; Visit Provider Surgery
DX: E66.01 Morbid (severe) obesity due to excess calories (principal)
CPT/HCPCS: 74246

== ENCOUNTER → 2023-03-06 08:17 | Outpatient (BNV) | payer OTHER, SELFPAY | PROVIDERS: PCP Physician Assistant; Visit Provider Radiology Diagnostic Radiology | DX: Z01.818 Encounter for other preprocedural examination (principal); E66.01 Morbid (severe) obesity due to excess calories | CPT/HCPCS: 74246 ==

== ENCOUNTER 2023-03-29 16:30 | Outpatient (REF) | payer OTHER, SELFPAY ==
--- NOTE | ~2023-03-29 | MR_ITS ---
EXAMINATION: MR ABDOMEN WITHOUT AND WITH CONTRAST CLINICAL INFORMATION: Hepatomegaly COMPARISON: Abdominal ultrasound 12/28/2022 TECHNIQUE: MRI of the abdomen before and after the IV administration of 10 mL of Gadavist was obtained using routine sequences. FINDINGS: LUNG BASES: The visualized lung bases are unremarkable. KIDNEYS AND URETERS: Duplicated left renal collecting system. GALLBLADDER: Unremarkable. LIVER AND BILIARY TREE: Liver is enlarged measuring 19 cm in span. Loss of signal in the posterior horn and compatible with hepatic steatosis with heterogeneous region of fatty sparing in the left hepatic lobe corresponding to the sonographic finding. No suspicious liver lesion. No intra or extrahepatic biliary duct dilatation. PANCREAS: Unremarkable SPLEEN: Unremarkable ADRENAL GLANDS: Unremarkable GASTROINTESTINAL TRACT: Unremarkable. LYMPH NODES: No lymphadenopathy. VASCULAR: Unremarkable ABDOMINAL WALL: Unremarkable. OSSEOUS STRUCTURES: Unremarkable. MR/MR abdomen wo/w con IMPRESSION: Hepatomegaly and hepatic steatosis with heterogeneous region of fatty sparing in the left hepatic lobe corresponding to the sonographic finding. No suspicious liver lesion.
[2023-03-29] MEDS: gadobutroL 10 ML VIAL IVPUSH (18:01)
== END 2023-03-29 16:31 | disposition home or self-care (01) ==
LOC: HO.MRI 16:30
PROVIDERS: PCP Physician Assistant; Visit Provider Surgery
DX: R16.0 Hepatomegaly, not elsewhere classified (principal)
CPT/HCPCS: 74183; A9585

== ENCOUNTER 2023-03-30 08:13 | Outpatient (AMB) | payer OTHER, SELFPAY ==
--- NOTE | 2023-03-30 12:01 | MHC.OFFVISWM ---
Intake VS Expanded 03/30/23 12:14 BP 143/88 H Height 5 ft 2 in Weight 216 lb 4 oz BMI 39.5 Body Fat % 51.4 Body Fat Mass 111.2 Fat Free Mass 105.2 Visceral Fat Rating 21 Body Water % 33.3 Body Water Mass 72 Basal Metabolic Rate/Score 1,395 Intake Visit Reasons: TV Follow Up SWL Allergies No Known Allergies Allergy (Verified 12/14/22 12:04) HPI TV Follow Up SWL HPI Details Start time: 11.58m, End time: 12.18pm ?I spent 15 minutes speaking with the patient on the phone plus an additional 5 minutes reviewing and updating records for a total of 20 minutes HPI Comments History of Present Illness Details Overall weight loss: 15.4lbs, or 6.64% TBWL On Phentermine. Denies any dry mouth, dizziness, foot numbness, irritability, insomnia Is doing 2 Celebrate Rebuild protein shakes (1 scoop in almond milk or water), 2.5 Celebrate protein bars and one meal (8 forks of meat and 8 forks of salad or vegetables) Exercise: doing treadmill for 400 calories x4 days per week and one day is doing Russ [employer] Medical History (Updated 03/30/23 @ 12:16 by Damon Tierney MD) Morbid obesity Surgical History (Updated 12/12/22 @ 11:02 by DESTINY Dasilva) delivery delivered Family History (Updated 12/12/22 @ 11:04 by DESTINY Dasilva) Mother No problems noted. Father Lung cancer Substance abuse Daughter No problems noted. Daughter No problems noted. Social History (Updated 12/12/22 @ 11:08 by DESTINY Dasilva) Household Members: Spouse and Children Housing: House Alcohol intake: never Patient Tobacco Use Status: Never used Tobacco Current occupational status: employed Current occupation: TEACHER Assessment & Plan Assessment & Plan (1) Obesity: Code(s): E66.9 - Obesity, unspecified Qualifiers: Obesity type: due to excess calories Obesity classification: adult class 2 (BMI 35 - 39.9) Serious obesity comorbidity presence: with serious comorbidity Body mass index: BMI 39.0-39.9 Qualified Code(s): E66.01 - Morbid (severe) obesity due to excess calories; Z68.39 - Body mass index [BMI] 39.0-39.9, adult Plan: 1. Plan for lap sleeve gastrectomy including upper GI endoscopy. All tests has been completed and reviewed and the patient is cleared for the surgery. ?If diaphragmatic or ventral hernias are present at time of surgery, these will be repaired laparoscopically as well. Risks and complications were discussed in detail including possible conversion to an open procedure, anastomotic leak, bleeding requiring transfusion, small bowel obstruction, , DVT and pulmonary embolism, cardiac, or pulmonary complications, as oysterman complications such as anastomotic ulcer, insufficient weight loss and vitamin deficiencies. I emphasized the importance of close follow-up, adherence to instructions and good communication. So far she has proven to be an excellent communicator and very compliant with all our directions accomplishing a great weight loss. I believe that she is an excellent candidate and she is ready. 2. Continue same nutritional plan of 2 Celebrate Rebuild protein shakes (1 scoop in almond milk or water), 2.5 Celebrate protein bars and one meal (8 forks of meat and 8 forks of salad or vegetables) 3. Exercise: continue treadmill for 400 calories x4 days per week and one day is doing Russ 4. We discussed the potential side-effects of the Phentermine such as irritability, dry mouth, difficulty sleeping, dizziness, numbness in feet and high blood pressure. I asked her to get a blood pressure monitor and measure the blood pressure daily in the morning and evening. She needs to send the blood pressure readings daily and to call the office for blood pressure over 140/80 and she understands that. 5. Continue to send me weight measurements weekly on Fridays Telehealth Telehealth Location of provider rendering services: practice address Location of patient: address on file Patient Identification confirmed using: Name, : Yes Telehealth method: voice only Patient verbally consented to treatment: Yes Patient verbally consented to billing insurance company: Yes Patient informed of any privacy concerns related to visit: Yes Minutes spent on Phone/Video with Pt.: 20 Coding Level of Care Code Tele Est Pt Level 3 (72206) Diagnoses Class 2 severe obesity due to excess calories with serious comorbidity and body mass index (BMI) of 39.0 to 39.9 in adult E66.01; Z68.39 Obesity type: due to excess calories Obesity classification: adult class 2 (BMI 35 - 39.9) Serious obesity comorbidity presence: with serious comorbidity Body mass index: BMI 39.0-39.9 Time Spent (min) 20
[2023-03-30 12:14] VITALS: BP 143/88; BMI 39.5
== END 2023-03-30 12:19 | disposition home or self-care (01) ==
LOC: HO.HBS 08:13
PROVIDERS: PCP Physician Assistant; Visit Provider Surgery
DX: E66.01 Morbid (severe) obesity due to excess calories (principal); Z68.39 Body mass index [BMI] 39.0-39.9, adult
CPT/HCPCS: 99442

== ENCOUNTER → 2023-03-30 08:13 | Outpatient (BNVA) | payer OTHER, SELFPAY | PROVIDERS: PCP Physician Assistant; Visit Provider Surgery ==